=== PATIENT | female | born 2000 | race Two or more races ===

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

== ENCOUNTER → 2019-01-12 10:36 | Outpatient (CLI) | payer MEDICAID, SELFPAY ==
[2019-01-13 12:43] LABS: HSV 1 IgG < 0.91 index (0.00-0.90); HSV 2 IgG < 0.91 index (0.00-0.90)
== END ==
PROVIDERS: PCP Obstetrics & Gynecology; Visit Provider Obstetrics & Gynecology
DX: Z11.3 Encounter for screening for infections with a predominantly sexual mode of transmission (principal)
CPT/HCPCS: 36415; 86695; 86696